=== PATIENT | female | born 1945 | race Caucasian/White ===

== ENCOUNTER 2025-08-12 06:11 | Day surgery (SDC) | payer MEDICARE, SELFPAY ==
[2025-08-12 14:21] VITALS: BP 197/110
[2025-08-12] MEDS: NORMOSOL-R/PLASMALYTE-A 1000 IV (14:43)
[2025-08-12 15:17] VITALS: BMI 51.5
[2025-08-12 17:04] VITALS: BP 148/80
[2025-08-12 17:15] VITALS: BP 159/95
[2025-08-12 17:30] VITALS: BP 145/88
[2025-08-12 18:15] VITALS: BP 135/84
== END 2025-08-12 18:30 | disposition home or self-care (01) ==
LOC: SDS 06:11
PROVIDERS: ATTENDING PHYSICIAN Obstetrics & Gynecology
DX: N36.42 Intrinsic sphincter deficiency (ISD) (principal); N39.3 Stress incontinence (female) (male)
CPT/HCPCS: 51715; L8606